=== PATIENT | female | born 1940 | race Caucasian/White ===

== ENCOUNTER 2024-05-25 22:46 | Inpatient (IN) ==
[2024-05-25] MEDS: fentaNYL 100 MCG/2 ML VIAL IV ONE (23:42)
[2024-05-25] MEDS: ONDANSETRON 4 MG/2 ML VIAL IV ONE (23:42)
[2024-05-25] MEDS: 0.9 % SODIUM CHLORIDE 1,000 ML IV ONE (23:43)
[2024-05-25] MEDS: ONDANSETRON 4 MG/2 ML VIAL ONE (23:43)
[2024-05-25 23:44] LABS: Basophils # (Auto) 0.03 K/mcL (0.00-0.30); Basophils % (Auto) 0.3 % (0.0-2.0); Eosinophils # (Auto) 0.21 K/mcL (0.00-0.70); Eosinophils % (Auto) 2.2 % (0.0-7.0); Hematocrit 38.4 % (34.1-44.9); Hemoglobin 12.5 g/dL (11.2-15.7); Lymphocytes # (Auto) 1.85 K/mcL (1.50-4.80); Lymphocytes % (Auto) 19.6 % (15.5-49.0); Mean Cell Volume 90.8 fL (80.0-100.0); Mean Corpuscular HGB Conc 32.6 g/dL (31.0-36.0); Mean Platelet Volume 9.7 fL (8.8-12.5); Monocytes # (Auto) 0.74 K/mcL (0.10-0.90); Monocytes % (Auto) 7.9 % (1.0-12.0); Neutrophils % (Auto) 69.7 % (38.0-78.0); Platelet Count 327 K/mcL (140-440); RBC 4.23 M/mcL (3.59-5.38); WBC 9.4 K/mcL (4.5-11.0)
[2024-05-26 00:04] LABS: ALT/SGPT 8 U/L (<40); AST/SGOT 17 U/L (<32); Albumin 4.1 gm/dL (3.2-5.2); Albumin/Globulin Ratio 1.5 (1.0-2.3); Alkaline Phosphatase 74 U/L (39-117); Bilirubin,Total 0.3 mg/dL (0.1-1.0); Blood Urea Nitrogen 12 mg/dL (8-23); Calcium 9.8 mg/dL (8.6-10.4); Carbon Dioxide 24 mmol/L (22-30); Chloride 102 mmol/L (96-108); Globulin 2.8 gm/dL (2.2-3.7); Glomerular Filtration Rate 67; Glucose 103 mg/dL (70-105); Potassium 3.6 mmol/L (3.3-5.1); Sodium 138 mmol/L (133-145)
[2024-05-26] MEDS: LIDOCAINE 2% URO-JET 10 ML JEL.PF.APP UR ONE (00:39)
[2024-05-26] MEDS: morphine 4 MG/ML VIAL IV ONE (00:57)
[2024-05-26 01:04] LABS: Appearance,Urine Slightly Cloudy (Clear); Bilirubin,Urine Negative (Negative); Color,Urine Yellow; Glucose,Urine (UA) Negative (Negative); Ketones,Urine Negative (Negative); Leukocyte Esterase,Urine Negative /uL (Negative); Nitrate,Urine Negative (Negative); PH,Urine 5.5 (5.0-9.0); Protein,Urine Negative (Negative); Urine Blood Trace-lysed ery/mcL (Negative); Urine RBC 10 /hpf (0-3); Urine Squamous Epithelial Cell 1 /hpf (0-4); Urine WBC 2 /hpf (0-4); Urobilinogen,Urine Normal
[2024-05-26] MEDS ORDERED: ONDANSETRON 4 MG/2 ML VIAL IV PRN ×2 (01:53→06:28)
[2024-05-26] MEDS: 0.9 % SODIUM CHLORIDE 1,000 ML IV SCH ×2 (01:58→06:56)
[2024-05-26] MEDS: morphine 2 MG/ML VIAL IV PRN (02:10)
[2024-05-26] MEDS: ACETAMINOPHEN 1,000 MG/100 ML BAG IV PRN (02:11)
[2024-05-26] MEDS: ACETAMINOPHEN 1,000 MG/100 ML BAG IV ONE (02:51)
[2024-05-26] MEDS ORDERED: oxyCODONE IR 5 MG TABLET PO PRN (06:28)
[2024-05-26] MEDS: SENNOSIDES 1 TABLET PO SCH (08:57)
[2024-05-26] MEDS: ACETAMINOPHEN 1,000 MG/100 ML BAG IV SCH (14:13)
[2024-05-26] MEDS ORDERED: PROPOFOL 200 MG/20 ML VIAL IV ONE (14:44)
[2024-05-26] MEDS ORDERED: KETAMINE 50 MG/ML Syringe IV ONE (14:44)
[2024-05-26] MEDS ORDERED: fentaNYL 100 MCG/2 ML VIAL ONE ×2 (14:44→17:02)
[2024-05-26] MEDS ORDERED: ONDANSETRON 4 MG/2 ML VIAL ONE (14:46)
[2024-05-26] MEDS ORDERED: GLYCOPYRROLATE 0.2 MG/ML VIAL IV ONE (14:46)
[2024-05-26] MEDS ORDERED: LIDOCAINE 2% PF 5 ML VIAL ONE (14:46)
[2024-05-26] MEDS ORDERED: DEXAMETHASONE 10 MG/ML VIAL ONE (14:46)
[2024-05-26] MEDS ORDERED: FAMOTIDINE/PF 20 MG/2 ML VIAL IV ONE (14:47)
[2024-05-26] MEDS: ceFAZolin 2 GM in DEXTROSE 5% IN WATER 50 ML IV SCH ×2 (14:56→19:47)
[2024-05-26] MEDS ORDERED: ROCURONIUM 10 MG/ML ML IV ONE (15:49)
[2024-05-26] MEDS ORDERED: TRANEXAMIC ACID 1,000 MG/10 ML VIAL ONE (15:59)
[2024-05-26] MEDS: 0.9 % SODIUM CHLORIDE 10 ML SYRINGE IV SCH (16:08)
[2024-05-26] MEDS ORDERED: SUGAMMADEX SODIUM 200 MG/2 ML VIAL IV ONE (16:13)
[2024-05-26] MEDS ORDERED: IPRATROPIUM/ALBUTEROL 3 ML AMPUL.NEB NEB PRN (16:36)
[2024-05-26] MEDS ORDERED: fentaNYL 100 MCG/2 ML VIAL IV PRN (16:36)
[2024-05-26] MEDS ORDERED: BISACODYL 10 MG SUPP.RECT PR PRN (16:55)
[2024-05-26] MEDS ORDERED: FLEETS ADULT 1 DOSE ENEMA PR PRN (16:55)
[2024-05-26] MEDS ORDERED: oxyCODONE/APAP 5/325MG TABLET PO PRN (16:55)
[2024-05-26] MEDS ORDERED: BENZOCAINE/MENTHOL 1 LOZENGE PO PRN (16:55)
[2024-05-26] MEDS ORDERED: MAGNESIUM HYDROXIDE 30 ML ORAL.SUSP PO PRN (16:55)
[2024-05-26] MEDS: TRANEXAMIC ACID 1,000 MG/10 ML VIAL IV SCH (17:43)
[2024-05-26] MEDS: LACTATED RINGERS 1,000 ML IV SCH ×2 (19:45→19:47)
[2024-05-26] MEDS: VANCOMYCIN 1 GM VIAL TOPICAL SCH ×2 (19:46)
[2024-05-26] MEDS: DOCUSATE SODIUM 100 MG CAPSULE PO SCH (21:19)
[2024-05-26] MEDS: ACETAMINOPHEN 500 MG TABLET PO SCH (21:21)
[2024-05-26] MEDS: ceFAZolin 1 GM VIAL IV SCH (23:33)
[2024-05-27] MEDS: oxyCODONE IR 5 MG TABLET PO PRN (04:40)
[2024-05-27 05:35] LABS: Hematocrit 36.5 % (34.1-44.9)
[2024-05-27 09:04] LABS: Basophils # (Auto) 0.01 K/mcL (0.00-0.30); Basophils % (Auto) 0.1 % (0.0-2.0); Eosinophils # (Auto) 0 K/mcL (0.00-0.70); Eosinophils % (Auto) 0 % (0.0-7.0); Hematocrit 35.8 % (34.1-44.9); Hemoglobin 11.6 g/dL (11.2-15.7); Lymphocytes # (Auto) 1.06 K/mcL (1.50-4.80); Mean Cell Volume 91.6 fL (80.0-100.0); Mean Corpuscular HGB Conc 32.4 g/dL (31.0-36.0); Monocytes # (Auto) 0.76 K/mcL (0.10-0.90); Monocytes % (Auto) 5.8 % (1.0-12.0); Neutrophils % (Auto) 85.9 % (38.0-78.0); Platelet Count 300 K/mcL (140-440); RBC 3.91 M/mcL (3.59-5.38); Red Cell Distribution Width 13.1 % (11.5-14.5); WBC 13.2 K/mcL (4.5-11.0)
[2024-05-27 09:21] LABS: Blood Urea Nitrogen 11 mg/dL (8-23); Calcium 8.7 mg/dL (8.6-10.4); Carbon Dioxide 23 mmol/L (22-30); Chloride 102 mmol/L (96-108); Glomerular Filtration Rate 67; Glucose 128 mg/dL (70-105); Potassium 3.8 mmol/L (3.3-5.1); Sodium 137 mmol/L (133-145)
[2024-05-27] MEDS: FLU VACC TS2024-25(65YR UP)/PF 180 MCG/0.5 ML SYRINGE IM ONE (11:47)
[2024-05-27] MEDS: APIXABAN 2.5 MG TABLET PO SCH (21:14)
[2024-05-28 06:30] LABS: Basophils # (Auto) 0.03 K/mcL (0.00-0.30); Basophils % (Auto) 0.2 % (0.0-2.0); Eosinophils # (Auto) 0.23 K/mcL (0.00-0.70); Eosinophils % (Auto) 1.8 % (0.0-7.0); Hematocrit 33.4 % (34.1-44.9); Hemoglobin 11.1 g/dL (11.2-15.7); Lymphocytes # (Auto) 1.99 K/mcL (1.50-4.80); Lymphocytes % (Auto) 15.9 % (15.5-49.0); Mean Corpuscular HGB Conc 33.2 g/dL (31.0-36.0); Mean Platelet Volume 9.8 fL (8.8-12.5); Monocytes # (Auto) 0.95 K/mcL (0.10-0.90); Monocytes % (Auto) 7.6 % (1.0-12.0); Neutrophils % (Auto) 74.3 % (38.0-78.0); Platelet Count 283 K/mcL (140-440); RBC 3.67 M/mcL (3.59-5.38); Red Cell Distribution Width 13.2 % (11.5-14.5); WBC 12.5 K/mcL (4.5-11.0)
[2024-05-28 06:55] LABS: Blood Urea Nitrogen 13 mg/dL (8-23); Calcium 9.2 mg/dL (8.6-10.4); Carbon Dioxide 24 mmol/L (22-30); Chloride 107 mmol/L (96-108); Glomerular Filtration Rate 67; Glucose 91 mg/dL (70-105); Potassium 3.6 mmol/L (3.3-5.1); Sodium 142 mmol/L (133-145)
[2024-05-30 02:12] VITALS: O2SAT 95
[2024-05-30] MEDS: POLYETHYLENE GLYCOL 3350 17 GM PACKET PO PRN (09:58)
[2024-05-30 12:29] VITALS: TEMP 98.5
== END 2024-05-30 13:31 ==
LOC: ED 22:46 → MEDSUR 22:46
PROVIDERS: ADMIT Internal Medicine; ATTEND Student in an Organized Health Care Education/Training Program
PROC: HEMIHIP (2024-05-26 15:39)